=== PATIENT | female | born 1975 | race Asian ===

== ENCOUNTER 2018-10-14 13:51 | Emergency (ER) | payer OTHER ==
[2018-10-14] MEDS ORDERED: FAMOTIDINE 20 MG/50 ML IVPB 20 MG/50 ML MG IVPB ONE ×2 (13:58→14:08)
--- NOTE | 2018-10-14 14:05 | PDOC ---
History of Present Illness <Bar Huynh - Last Filed: 10/14/18 15:48> - General History Source: Patient Exam Limitations: No Limitations - History of Present Illness Initial Comments: 10/14/18 13:59 43yo F with no significant PMH presenting to ED with complaint of an allergic reaction. Pt states 1h ago she was eating cherries and immediately after she developed swelling on her lip and a scratchy feeling in her throat. She has never had a reaction to cherries before. She did not take any medications yet. She denies sob, wheezing, rash, pruritis, n/v/d, eye swelling/itching, congestion, tongue swelling, abdominal pain, fevers, chills. Allergies: PCN <Emy Jain - Last Filed: 10/14/18 16:56> - General Chief Complaint: Allergic Reaction Stated Complaint: ALLERGIC REACTION Time Seen by Provider: 10/14/18 13:53 Past History <Bar Huynh - Last Filed: 10/14/18 15:48> - Past Medical History Asthma: Yes COPD: No Other medical history: MIGRAINS - Suicide/Smoking/Psychosocial Hx Smoking History: Never smoked Hx Alcohol Use: No Drug/Substance Use Hx: No <Emy Jain - Last Filed: 10/14/18 16:56> - Past Medical History Allergies/Adverse Reactions: Allergies Allergy/AdvReac Type Severity Reaction Status Date / Time Penicillins Allergy Verified 10/14/18 13:52 CHERRIES Allergy Uncoded 10/14/18 13:52 Home Medications: Ambulatory Orders Diphenhydramine [Benadryl -] 50 mg PO TID #20 capsule 10/14/18 Famotidine [Pepcid] 40 mg PO DAILY #10 tablet 10/14/18 Review of Systems - Review of Systems Constitutional: No: Symptoms Reported HEENTM: Yes: See HPI, Other (lip swelling) Respiratory: No: Shortness of Breath, Wheezing Cardiac (ROS): No: Symptoms Reported ABD/GI: No: Diarrhea, Nausea, Vomiting, Abdominal cramping : No: Symptoms Reported Musculoskeletal: No: Symptoms Reported Integumentary: No: Pruritus, Rash Neurological: No: Symptoms reported <Emy Jain - Last Filed: 10/14/18 16:56> *Physical Exam - Vital Signs Last Vital Signs Temp Pulse Resp BP Pulse Ox 98.5 F 80 14 119/80 99 10/14/18 13:51 10/14/18 13:51 10/14/18 13:51 10/14/18 13:51 10/14/18 13:51 <Bar Huynh - Last Filed: 10/14/18 15:48> - Vital Signs Last Vital Signs Temp Pulse Resp BP Pulse Ox 98.5 F 80 14 119/80 99 10/14/18 13:51 10/14/18 13:51 10/14/18 13:51 10/14/18 13:51 10/14/18 13:51 - Physical Exam General Appearance: Yes: Nourished, Appropriately Dressed. No: Apparent Distress HEENT: positive: EOMI, JINA, Pharynx Normal, Other (R upper lip swelling, no tongue swelling) Neck: positive: Trachea midline, Supple Respiratory/Chest: positive: Lungs Clear, Normal Breath Sounds. negative: Respiratory Distress, Accessory Muscle Use, Decreased Breath Sounds, Rales, Wheezing Cardiovascular: positive: Regular Rhythm, Regular Rate, S1, S2. negative: Edema , JVD, Murmur Gastrointestinal/Abdominal: positive: Normal Bowel Sounds, Soft Integumentary: positive: Normal Color, Dry, Warm. negative: Rash Neurologic: positive: composition teacher II-XII NML intact, Fully Oriented, Alert, Normal Mood/ Affect, Normal Response, Motor Strength 5/5 <Emy Jain - Last Filed: 10/14/18 16:56> ED Treatment Course - Medications Given in the ED: ED Medications Discontinued Medications Generic Name Dose Route Start Last Admin Trade Name Andrew PRN Reason Stop Dose Admin Diphenhydramine HCl 25 mg 10/14/18 13:58 10/14/18 14:15 Benadryl Injection - IVPUSH 10/14/18 13:59 25 mg ONCE ONE Administration Famotidine/Sodium Chloride 20 mg in 50 mls @ 100 mls/hr 10/14/18 13:58 14:15 Pepcid 20 Mg Premixed Ivpb - IVPB 10/14/18 14:27 100 mls/hr ONCE ONE Administration <Bar Huynh - Last Filed: 10/14/18 15:48> Medical Decision Making - Medical Decision Making 10/14/18 14:01 43yo F with no significant PMH presenting to ED with complaint of an allergic reaction. Pt states 1h ago she was eating cherries and immediately after she developed swelling on her lip and a scratchy feeling in her throat. She has never had a reaction to cherries before. She did not take any medications yet. She denies sob, wheezing, n/v/d, eye swelling/itching, congestion, tongue swelling, abdominal pain, fevers, chills. Vitals: wnl PE: R upper lip swelling, normal OP, no tongue swelling, no rash, lungs cta Likely having allergic reaction. Patent airway. does not need epinepherine at this time. Will give Benadryl and Pepcid. Reassess. 10/14/18 16:55 Swelling is reduced and patient reports resolving of symptoms. Safe for dc home. Given rx for benadryl and pepcid. Also given referral to ending machine operator. <Emy Jain - Last Filed: 10/14/18 16:56> *DC/Admit/Observation/Transfer - Discharge Dispostion Decision to Admit order: No <Bar Huynh - Last Filed: 10/14/18 15:48> - Discharge Dispostion Decision to Admit order: No <Emy Jain - Last Filed: 10/14/18 16:56> Diagnosis at time of Disposition: Allergic reaction Qualifiers: Encounter type: initial encounter Qualified Code(s): T78.40XA - Allergy, unspecified, initial encounter - Discharge Dispostion Disposition: HOME Condition at time of disposition: Improved - Prescriptions Prescriptions: Diphenhydramine [Benadryl -] 50 mg PO TID #20 capsule Famotidine [Pepcid] 40 mg PO DAILY #10 tablet - Referrals Referrals: Markos Doe MD [Staff Physician] - - Patient Instructions Printed Discharge Instructions: DI for General Allergic Reactions Additional Instructions: You were seen in the emergency room today for an allergic reaction. This could have been caused by eating the cherries or a substance mixed with the cherries. I recommend refraining from eating cherries. Two prescriptions were sent to your pharmacy. Please take as directed. There is a chance you can have another reaction within 48 hours. Please come back to the emergency room if this happens. I recommend seeing your primary care doctor or an ending machine operator sometime this week or early next week. Referral is provided below. Come back to the emergency room if symptoms get worse, you have difficulty breathing, you break out into a rash or if any new concerning symptom develops. - Post Discharge Activity Forms/Work/School Notes: Back to Work
[2018-10-14 14:27] VITALS: TEMP 98.5; BMI 22.8
--- NOTE | 2018-10-14 15:19 | PDOC ---
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 Possibly felt a scratching in her throat, but this is uncertain. No chest tightness or wheezing. No abdominal pain nausea or vomiting. No other known ALLERGIES with the patient does have asthma, with no recent flareups. - Physicial Exam PE: 10/14/18 17:29 Exam shows a patient who is alert and oriented in no acute distress cheerful and cooperative. Vital signs normal Mild swelling of the right upper lip, but no other facial or oropharyngeal swelling or edema. No airway compromise. Lungs clear without wheezing, full breath sounds bilaterally Cardiac exam is normal Abdomen soft nontender without mass or organomegaly Impression: Possibly mild ALLERGIC reaction, contact in nature, no serious angioedema Plan: H1 and H2 blockers, observe. - Medical Decision Making 10/14/18 17:31 Patient observed for a prolonged period in the emergency room. Swelling appears to be resolving. To continue H1 and H2 blockers, return to ER if symptoms worsen , otherwise follow with family physician. Fully ambulatory and in no distress at discharge
[2018-10-14 16:04] VITALS: BP 102/60; PULSE 73
== END 2018-10-14 17:16 | disposition home or self-care (01) ==
LOC: FER 13:51
PROC: 3E033GC Introduction of Other Therapeutic Substance into Peripheral Vein, Percutaneous Approach (ICD-10-PCS; principal; 2018-10-14)
DX: T78.40XA Allergy, unspecified, initial encounter (principal); J45.909 Unspecified asthma, uncomplicated
CPT/HCPCS: 99282-25